=== PATIENT | male | born 1950 | race African-American/Black ===

== ENCOUNTER → 2017-01-25 15:29 | Outpatient (CLI) | payer MEDICARE, OTHER ==
[2016-08-05 22:35] VITALS: BMI 21.3
[~2017-01-25 15:29] MED LIST: BYSTOLIC2.5 MG PO; GLUCOPHAGE500 MG PO; HYDROCHLOROTH12.5 M1 PO; NORVASC5 MG PO; PRAVACHOL80 MG PO; PRILOSEC20 MG PO; VENTOLIN HFA18 GM INH; VOLTAREN100 GM TOPICAL
== END | disposition home or self-care (01) ==
LOC: D.CT 01-24 14:00
DX: R31.9 Hematuria, unspecified (principal)

== ENCOUNTER → 2017-02-25 20:41 | Outpatient (CLI) | payer MEDICARE, OTHER ==
[2016-08-05 22:35] VITALS: BMI 21.3
[2017-02-25 21:09] LABS: APPEARANCE CLEAR (CLEAR); BILIRUBIN NEGATIVE (NEGATIVE); COLOR YELLOW (YELLOW); GLUCOSE NEGATIVE (NEGATIVE); KETONE NEGATIVE (NEGATIVE); LEUKOCYTE ESTERASE NEGATIVE (NEGATIVE); NITRITE NEGATIVE (NEGATIVE); PROTEIN NEGATIVE (NEGATIVE); UROBILINOGEN NORMAL (NORMAL)
== END | disposition home or self-care (01) ==
LOC: D.LABREF 20:41
PROVIDERS: Urology
DX: N39.0 Urinary tract infection, site not specified (principal)

== ENCOUNTER 2017-03-24 08:00 | Day surgery (SDC) | payer OTHER, MEDICARE ==
[~2017-03-24] VITALS: Ht 180.3 cm; Wt 63.5 kg
[~2017-03-24 08:00] MED LIST changes: +IPRAT-ALBUT 0.5-3 ML UPD
[2017-03-24] MEDS ORDERED: LIPITOR40 MG PO (09:17)
[2017-03-24 09:26] VITALS: Ht 180.3 cm; Wt 63.5 kg
== END 2017-03-24 16:11 | disposition home or self-care (01) ==
LOC: D.OPS 08:00
DX: R31.0 Gross hematuria (principal); N40.0 Benign prostatic hyperplasia without lower urinary tract symptoms; J44.9 Chronic obstructive pulmonary disease, unspecified; I10 Essential (primary) hypertension; E11.9 Type 2 diabetes mellitus without complications; K21.9 Gastro-esophageal reflux disease without esophagitis; Z87.891 Personal history of nicotine dependence; Z01.812 Encounter for preprocedural laboratory examination

== ENCOUNTER → 2018-11-06 13:35 | Outpatient (CLI) | payer OTHER, MEDICARE ==
[2017-03-24 09:26] VITALS: BMI 19.5
[~2018-11-06 13:35] MED LIST changes: +LIPITOR40 MG PO
== END | disposition home or self-care (01) ==
LOC: D.RT 13:35
DX: J44.9 Chronic obstructive pulmonary disease, unspecified (principal)

== ENCOUNTER → 2020-02-05 11:51 | Outpatient (CLI) | payer OTHER, MEDICARE ==
[2017-03-24 09:26] VITALS: BMI 19.5
== END | disposition home or self-care (01) ==
LOC: D.LABREF 11:51
PROVIDERS: ATTEND Internal Medicine Pulmonary Disease
DX: Z11.59 Encounter for screening for other viral diseases (principal)

== ENCOUNTER → 2020-02-12 14:28 | Outpatient (CLI) | payer OTHER, MEDICARE ==
[2017-03-24 09:26] VITALS: BMI 19.5
== END | disposition home or self-care (01) ==
LOC: D.RT 12-04 13:00 → D.RAD 12-04 13:45 → D.RT 02-05 13:00 → D.RAD 02-05 13:00
PROVIDERS: ATTEND Internal Medicine Pulmonary Disease
DX: J44.9 Chronic obstructive pulmonary disease, unspecified (principal)